=== PATIENT | male | born 1995 | race Caucasian/White ===

== ENCOUNTER 2017-03-18 21:47 | Emergency (ER) | payer OTHER ==
[2017-03-18 23:09] VITALS: BP 151/86
== END 2017-03-18 23:09 | disposition home or self-care (01) ==
LOC: ED 21:47
DX: S62.521A Displaced fracture of distal phalanx of right thumb, initial encounter for closed fracture (principal); R03.0 Elevated blood-pressure reading, without diagnosis of hypertension; W23.0XXA Caught, crushed, jammed, or pinched between moving objects, initial encounter; Y93.89 Activity, other specified; Y92.810 Car as the place of occurrence of the external cause; Y99.9 Unspecified external cause status

== ENCOUNTER 2017-03-20 21:29 | Emergency (ER) | payer OTHER ==
[2017-03-20 23:24] VITALS: BP 147/86
== END 2017-03-20 23:24 | disposition home or self-care (01) ==
LOC: ED 21:29
DX: S62.521A Displaced fracture of distal phalanx of right thumb, initial encounter for closed fracture (principal); W22.8XXA Striking against or struck by other objects, initial encounter; Y93.89 Activity, other specified; Y99.8 Other external cause status; Y92.89 Other specified places as the place of occurrence of the external cause
CPT/HCPCS: J1885

== ENCOUNTER 2018-01-14 19:28 | Emergency (ER) | payer OTHER ==
[~2018-01-14] VITALS: Ht 172.7 cm; Wt 91.2 kg
[2018-01-14 19:41] VITALS: BP 143/93; Ht 172.7 cm; Wt 91.2 kg
== END 2018-01-14 21:20 | disposition home or self-care (01) ==
LOC: ED 19:28
DX: H66.91 Otitis media, unspecified, right ear (principal); R51 Headache; R68.84 Jaw pain; Z90.89 Acquired absence of other organs